=== PATIENT | female | born 1985 | race Caucasian/White ===

== ENCOUNTER 2023-09-02 16:39 | Inpatient (IN) | payer OTHER, SELFPAY ==
[2023-09-02 16:54] VITALS: BP 134/80; PULSE 105; RESP 18; TEMP 36.7; O2SAT 98; BMI 20.7
--- NOTE | 2023-09-02 16:56 | ED.GENADULT ---
HPI - General Adult General Chief complaint: Neuro Symptoms/Deficit Stated complaint: Unable to feel arms/hands are locked Time Seen by Provider: 09/02/23 17:29 Source: patient Mode of arrival: ambulatory History of Present Illness HPI narrative: 37-year-old female who denies any past medical history but endorses that she consumes 5-6 alcoholic drinks daily and states that she was on her way back home ([place], [place]) and began experiencing significant tremors that she was unable to control and was concerned because she has known magnesium and potassium derangements previously and denies any history of having experienced seizures. Related Data Home Medications Medication Instructions Recorded Confirmed buspirone 5 mg tablet 5 mg PO BID 09/03/23 09/03/23 citalopram 20 mg tablet 20 mg PO DAILY 09/03/23 09/03/23 potassium chloride 20 mEq 40 meq PO BID 09/03/23 09/03/23 tablet,extended release(part/cryst) (Klor-Con M) Previous Rx's Medication Instructions Recorded magnesium oxide 400 mg PO BID #10 caps 09/03/23 Allergies Allergy/AdvReac Type Severity Reaction Status Date / Time No Known Allergies Allergy Verified 09/02/23 16:53 Review of Systems Review of Systems: Pertinent positives and negatives as stated in HPI [facility] Past Medical History Source: nursing notes reviewed Social History Social History Alcohol intake: current Alcohol intake frequency: 3 or more drinks per day Alcohol type: other Patient Tobacco Use Status: Current everyday Tobacco user service: No Physical Exam ED Vital Signs: Vital Signs - 24 hr 09/02/23 16:54 09/02/23 18:37 09/02/23 18:38 Temperature 98.1 F 98.3 F Pulse Rate 105 H 106 H Pulse Rate [Left Apical] 101 H Respiratory Rate 18 14 Blood Pressure 134/80 121/75 Pulse Oximetry 98 96 Oxygen Delivery Method Room Air Room Air 09/02/23 19:06 Temperature Pulse Rate 114 H Pulse Rate [Left Apical] Respiratory Rate 18 Blood Pressure 114/78 Pulse Oximetry 100 Oxygen Delivery Method Room Air BMI result Body Mass Index 20.7 VITAL SIGNS: Reviewed. GENERAL: Well developed, well nourished, in no acute distress. HEAD: Normocephalic/atraumatic EYES: PERRLA, EOMI EARS: Ext canals without abnormality NOSE: Nares patent bilateral OROPHARYNX: no oral lesions noted, posterior pharynx clear NECK: Supple, no adenopathy LUNGS: Normal breath sounds. No adventitious sounds or accessory muscle use. SpO2<98> CARDIOVASCULAR: Regular rate and rhythm without noted murmurs ABDOMEN: Soft, non-tender, non-distended with bowel sounds. MUSCULOSKELETAL: No tenderness, deformities, or effusions noted on gross inspection. EXTREMITIES: No cyanosis, clubbing or edema. SKIN: Inspection of the skin reveals no rashes, NEUROLOGIC: Alert and oriented x 4. Strength and sensation to light touch were grossly intact x 4, paresthesias+, significant tremors+. Course Course Course Narrative: RME: 37 yold female presents to the ED for tremors with pmh of alcohol abuse and hypokalemia, hypomagnesmeia, and alcohol abuse. patient's last drink was last night. labs ordered. Charge nurse informed for patient to be brought to the ED immedialely for possible withdrawals. Medications Administered Generic Name Dose Route Start Last Admin Trade Name Gilberto PRN Reason Stop Dose Admin Buspirone HCl 5 mg 09/03/23 09:00 09/03/23 08:46 Buspirone Hcl 5 Mg Tablet PO 5 mg BID CHAPITO Administration Enoxaparin Sodium 40 mg 09/02/23 20:00 09/02/23 20:58 Enoxaparin Sodium 40 Mg/0.4 Ml Syringe SUBCUT 40 mg Q24H CHAPITO Administration Escitalopram Oxalate 10 mg 09/03/23 09:00 09/03/23 08:46 Escitalopram Oxalate 10 Mg Tablet PO 10 mg DAILY CHAPITO Administration Famotidine 20 mg 09/02/23 21:00 09/03/23 08:04 Famotidine 20 Mg Tablet PO 20 mg BID CHAPITO Administration Folic Acid 1 mg 09/02/23 20:25 09/03/23 07:58 Folic Acid 1 Mg Tablet PO 09/05/23 20:24 1 mg DAILY CHAPITO Administration Lorazepam 1 mg 09/03/23 00:00 09/03/23 07:59 Lorazepam 1 Mg Tablet PO 09/06/23 23:59 1 mg Q4H CHAPITO Administration Taper Magnesium Oxide 400 mg 09/03/23 08:30 09/03/23 08:46 Magnesium Oxide 400 Mg Tablet PO 400 mg BIDPC CHAPITO Administration Multivitamins/Vitamin C 1 tab 09/02/23 20:25 09/03/23 07:58 Multivitamin Tablet PO 09/05/23 20:24 1 tab DAILY CHAPITO Administration Potassium Chloride 40 meq 09/03/23 09:00 09/03/23 08:46 Potassium Chloride Er 20 Meq Tab.Er.Prt PO 40 meq BID CHAPITO Administration Sodium Chloride 3 ml 09/03/23 00:00 09/03/23 08:00 0.9 % Sodium Chloride Flush 3 Ml Syringe IVFLUSH 3 ml QSHIFT CHAPITO Administration Thiamine HCl 100 mg 09/02/23 20:25 09/03/23 07:58 Thiamine Hcl 100 Mg Tablet PO 09/05/23 20:24 100 mg DAILY CHAPITO Administration Discontinued Medications Generic Name Dose Route Start Last Admin Trade Name Freq PRN Reason Stop Dose Admin Sodium Chloride 1,000 mls @ 999 mls/hr 09/02/23 18:00 09/02/23 19:46 Ns IV 09/02/23 19:00 Infused .Q1H1M CHAPITO Infusion Magnesium Sulfate 2 gm in 50 mls @ 150 mls/hr 09/02/23 18:07 09/02/23 19:45 Magnesium Sulfate/H2o IV 09/02/23 18:26 Infused ONCE ONE Infusion Potassium Chloride 10 meq in 100 mls @ 100 mls/hr 09/02/23 18:45 09/03/23 00:18 Potassium Chloride/H20 IV 09/02/23 22:44 Infused Q1H CHAPITO Infusion Lorazepam 2 mg 09/02/23 19:14 09/02/23 19:44 Lorazepam 1 Mg Tablet PO 09/02/23 19:15 2 mg ONCE ONE Administration Ondansetron HCl 4 mg 09/02/23 17:47 09/02/23 17:52 Ondansetron Hcl 4 Mg/2 Ml Vial IVPUSH 09/02/23 17:48 4 mg ONCE ONE Administration Phenobarbital Sodium 262 mg 09/02/23 18:45 09/02/23 19:40 Phenobarbital Sodium 130 Mg/Ml Im Once IM 09/02/23 18:46 Not Given ONCE ONE Potassium Chloride 40 meq 09/02/23 20:05 09/02/23 21:00 Potassium Chloride Packet 20 Meq Packet PO 09/02/23 20:06 40 meq ONCE ONE Administration Medical Decision Making Medical Decision Making MDM Narrative: 37-year-old female with history and clinical presentation most consistent with alcohol withdrawal, benign paresthesias are possibility but felt to be less likely and will rule out infection/anemia/electrolyte derangements. I reviewed all investigations and hematologic indices are negative for leukocytosis but there is a noted left shift, there is no anemia there is a macrocytosis consistent with suspected B12 deficiency due to chronic alcohol use, there is no thrombocytopenia. Chemistry indices are significant for both hypomagnesemia and hypokalemia, there is no QI but patient is not tolerating oral intake at this time and will receive Zofran/IV fluids and be placed on a phenobarb protocol. Elevated transaminases are felt to be secondary to underlying alcohol abuse. [facility]13 [id number]: I discussed with inpatient hospitalist who accepts admission. Differential Diagnosis Differential Diagnoses: The differential diagnosis associated with the presentation includes Please see the discussion above Admission/Observation Consideration of admission/observation: Escalation of care including admission/observation considered Please see the discussion above Consult Healthcare Provider Management of the patient was discussed with: Hospitalist Please see the discussion above Lab Data [facility] Lab Attestation statement: I reviewed the patient's lab results. Please see the discussion above 09/03/23 05:21 09/03/23 05:21 Labs: Lab Results 09/02/23 09/02/23 Range/Units 17:05 17:23 WBC 9.8 (4.8-10.8) X10*3/uL RBC 3.98 L (4.20-5.50) X10*6/uL Hgb 14.0 (12.0-16.0) g/dl Hct 41.0 (37.0-47.0) % MCV 103.0 H (80.0-98.0) fL MCH 35.2 H (27.0-33.0) pg MCHC 34.1 (31.0-35.0) g/dl RDW 12.4 (11.0-16.0) % Plt Count 217 (160-400) X10*3/uL MPV 9.8 (9.4-12.3) fL Immature Gran % (Auto) 0.4 (0.0-0.4) % Neut % (Auto) 83.9 H (45-73) % Lymph % (Auto) 8.8 L (20-40) % [place] % (Auto) 5.6 (2-11) % Eos % (Auto) 0.2 (0-4) % Baso % (Auto) 1.1 (0-2) % Lymph # (Auto) 0.9 L (1.2-4.9) X10*3/uL [place] # (Auto) 0.6 (0.1-1.2) X10*3/uL Eos # (Auto) 0.0 (0.0-0.4) X10*3/uL Baso # (Auto) 0.1 (0.0-0.2) X10*3/uL Abs Immat Gran (auto) 0.04 H (0.00-0.03) X10*3/uL Absolute Neuts (auto) 8.2 (2.0-8.3) x10*3/uL Absolute Nucleated RBC 0.000 (0.0-0.012) X10*3/uL Nucleated RBC % (auto) 0.0 (0.0-0.2) /100WBC Sodium 145 (135-145) mmol/L Potassium 2.6 L (3.3-5.1) mmol/L Chloride 102 (96-108) mmol/L Carbon Dioxide 22 (22-29) mmol/L Anion Gap 24 H (12-20) BUN 6 L (9-16) mg/dL Creatinine 0.71 (0.5-1.4) mg/dL Estim Creat Clear Calc 94.4 Estimated GFR > 60 Random Glucose 100 (60-115) mg/dL Calcium 8.8 (8.4-10.2) mg/dL Magnesium 1.3 L* (1.6-2.6) mg/dL Total Bilirubin 0.7 (0.0-1.0) mg/dL AST 59 H (5-31) U/L ALT 34 H (0-31) U/L Alkaline Phosphatase 78 (39-117) U/L Total Protein 7.1 (6.5-8.0) g/dL Albumin 4.2 (3.5-5.0) g/dL Lipase 14 (8-78) U/L Beta HCG, Quant < 2 mIU/mL Urine Color Yellow Urine Appearance Clear Urine pH >= 9.0 (5.0-9.0) Ur Specific [place] 1.025 (1.005-1.025) Urine Protein 30 (1+) H (Neg-Trace) mg/dL Urine Glucose (UA) Negative (Negative) mg/dL Urine Ketones 40 (Negative) mg/dL Urine Blood Negative (Negative) Urine Nitrite Negative (Negative) Ur Leukocyte Esterase Negative (Negative) Urine RBC 3-5 H (0-2) /HPF Urine WBC 0-5 (0-5) /HPF Ur Squamous Epith Cells 3-5 (0-2) /HPF Urine Bacteria None Seen (None Seen) Hyaline Casts 0-2 (0-2) /LPF Urine Test NEGATIVE (NEGATIVE) Ethyl Alcohol 26 mg/dL Independent Interpretation I performed an independent interpretation of an: EKG Interpretation: Sinus tachycardia, HR-112, no STEMI, NC/QRS is within normal limits, QTC is noted to be prolonged and patient receiving magnesium as well as potassium. Chronic Conditions Patient?s care impacted by: Other Alcohol abuse Social Determinants Patient?s care significantly limited by Social Determinants of Health including: Alcoholism and drug addiction in family Critical Care Time Critical Care Time Critical Care Time: Yes Total Critical Care Time: 30 Attestation: I personally attest to this time spent taking care of the patient. Discharge Plan Discharge Clinical Impression: Alcohol withdrawal, Nausea & vomiting, Dehydration, Hypokalemia, Hypomagnesemia Patient Disposition: Home, Self-Care Interventions: ED Discharge Assessment Last Done: 09/03/23 10:27 Discharge Date/Time: 09/03/23 10:30
[2023-09-02 17:14] LABS: Appearance Urine Clear; Color Urine Yellow; Glucose Urine UA Negative (Negative); Leukocyte Esterase Urine Negative (Negative); Nitrite Urine Negative (Negative); PH >= 9.0 (5.0-9.0); Specific Gravity - Urine 1.025 (1.005-1.025); UMIC TRIGGER UACC YES; Urine Blood Negative (Negative); Urine Ketones 40 mg/dL (Negative); Urine Protein 30 (1+) mg/dL (Neg-Trace)
[2023-09-02 17:26] LABS: MANUAL DIFF FLAG NO
[2023-09-02 17:27] LABS: Basophils Absolute Auto 0.1 X10*3/uL (0.0-0.2); Basophils Percent Auto 1.1 % (0-2); Eosinophils Percent Auto 0.2 % (0-4); Imm Gran Abs Auto 0.04 X10*3/uL (0.00-0.03); Imm Gran Pct Auto 0.4 % (0.0-0.4); Lymphocytes Absolute Auto 0.9 X10*3/uL (1.2-4.9); Lymphocytes Percent Auto 8.8 % (20-40); Mean Corpuscular HGB Conc 34.1 g/dl (31.0-35.0); Mean Corpuscular Hemoglobin 35.2 pg (27.0-33.0); Mean Platelet Volume 9.8 fL (9.4-12.3); Monocytes Absolute Auto 0.6 X10*3/uL (0.1-1.2); Monocytes Percent Auto 5.6 % (2-11); Neutrophils Absolute Auto 8.2 x10*3/uL (2.0-8.3); Neutrophils Percent Auto 83.9 % (45-73); Platelet Count 217 X10*3/uL (160-400); Red Blood Count 3.98 X10*6/uL (4.20-5.50); Red Cell Distribution Width 12.4 % (11.0-16.0); White Blood Count 9.8 X10*3/uL (4.8-10.8)
[2023-09-02 17:32] LABS: Bacteria Urine None Seen (None Seen); Hyaline Casts Urine 0-2 /LPF (0-2); UPreg QC Valid YES; Urine Pregnancy NEGATIVE (NEGATIVE); WBC Urine 0-5 /HPF (0-5)
--- NOTE | 2023-09-02 17:32 | PC.NURSE ---
Addendum entered by Cassie Cullen RN 09/02/23 18:41: it was noted after this note was typed that the patient was drinking red gatorade prior to vomiting. Original Note: pt vomited approx 600 ml red tinged liquid.
[2023-09-02] MEDS: 0.9 % Sodium Chloride 1,000 ML 999 ML IV (17:52)
[2023-09-02] MEDS: ondansetron HCL 4 MG/2 ML VIAL IVPUSH (17:52)
[2023-09-02 18:05] LABS: Alanine Aminotransferase 34 U/L (0-31); Albumin Level 4.2 g/dL (3.5-5.0); Alkaline Phosphatase 78 U/L (39-117); Anion Gap 24 (12-20); Aspartate Amino Transferase 59 U/L (5-31); Bilirubin Total 0.7 mg/dL (0.0-1.0); Blood Urea Nitrogen 6 mg/dL (9-16); Calcium 8.8 mg/dL (8.4-10.2); Carbon Dioxide 22 mmol/L (22-29); Chloride 102 mmol/L (96-108); Creatinine Clr Calc Pharmacy 94.4; Estimated Glomerular Filt Rate > 60; Ethanol 26 mg/dL; Glucose Random 100 mg/dL (60-115); HCG Quantitative < 2 mIU/mL; Magnesium 1.3 mg/dL (1.6-2.6); Potassium 2.6 mmol/L (3.3-5.1); Sodium 145 mmol/L (135-145); Total Protein 7.1 g/dL (6.5-8.0)
[2023-09-02 18:10] LABS: Lipase 14 U/L (8-78)
[2023-09-02] MEDS: Magnesium Sulfate/H2O 2 GM/50 ML PIGGYBACK IV (18:35)
[2023-09-02 18:37] VITALS: BP 121/75; PULSE 106; RESP 14; TEMP 36.8; O2SAT 96
[2023-09-02 18:38] VITALS: PULSE 101
--- NOTE | 2023-09-02 18:40 | ECG_ITS ---
Test Reason : vomiting/ tachycardia Blood Pressure : / mmHG Vent. Rate : 112 BPM Atrial Rate : 112 BPM P-R Int : 156 ms QRS Dur : 084 ms QT Int : 378 ms P-R-T Axes : 057 014 014 degrees QTc Int : 515 ms Sinus tachycardia RSR' or QR pattern in V1 suggests right ventricular conduction delay Nonspecific ST abnormality Abnormal ECG No previous ECGs available Referred By: Lisa Heard Electronically Signed By:BRODY KEARNS MD
--- NOTE | 2023-09-02 18:41 | PC.NURSE ---
patient a&ox3, control cabinet assembler applied pt st on monitor, iv inserted, labs drawn, pt ciwa 8, pt medicated per order. IVF and mag running per order, will obtain ekg, call bhatia within reach, will continue to monitor.
[2023-09-02 19:06] VITALS: BP 114/78; PULSE 114; RESP 18; O2SAT 100
[2023-09-02] MEDS: Potassium Chloride/H20 10 MEQ/100 ML PIGGYBACK 100 MEQ IV ×4 (19:22→23:18)
--- NOTE | 2023-09-02 19:22 | P.HPHOSP_ITS ---
History of Present Illness Date of Service: 09/02/23 Attending physician on admission: James Purvis Chief Complaint: Numbness and tingling in arms, clenched hands Pt is a 37-year-old female with a PMH significant for?chronic hypokalemia, alcohol dependence, and anxiety who presents to the ED with?sudden onset numbness and tingling in arms and clenched hands. Patient lives in [place] and normally goes to [facility] in [place]. Was visiting the area with her boyfriend for a and driving on the way back suddenly experienced numbness and tingling in her arms bilaterally and had her hands lock up to where she could not move them. Patient denies experiencing anything like this before, but notes she has a long history of hypokalemia for which she takes daily supplements. No also reports having ?the shakes? in her upper extremities since she was young, though notes these have become worse in the past few years. Patient also admits that she has felt under a lot of stress lately due to financial matters and has been feeling ?wicked anxious?. Reports drinking 4-5 hard seltzers daily with last drink last night. Denies history of alcohol withdrawal and says she usually does not drink until later in the evening after work. Smokes 1-2 packs of cigarettes weekly. Had some nausea and vomiting while in the ED. Denies diaphoresis, no auditory or visual hallucinations. No fever, chills, abdominal pain. Patient notes she has recently started taking buspirone for anxiety. Patient also denies any significant PMH, however knows she was hospitalized for over 3 weeks at [facility] in [place] for ?organ failure?. Patient states that many of her organs were failing including her kidneys, reports her hospital providers were unable to come up with an etiology or a formal diagnosis. In the ED pt was afebrile but tachycardic up to 114, normotensive and satting at 98% on RA. Labs were significant for MCV 103.0, potassium 2.6, magnesium 1.3, AST 59, ALT 34, and ethyl alcohol 26. No leukocytosis. H&H 14.0/41.0. Renal function WNL. Lipase WNL. UA negative for UTI. EKG demonstrated sinus tachycardia of 112 without evidence of significant ST elevations or depressions. Pt was treated with IVF, ondansetron, Mag sulfate, and potassium chloride. Pt will be admitted to the hospital for hypokalemia, hypomagnesemia, and alcohol withdrawal. Review of Systems 2 Review of Systems: Numbness and tingling in hands and arms Clinching of hands bilaterally Increased anxiety Chronic upper extremity tremors Nausea, vomiting Denies fever, chills, abdominal pain No chest pain/pressure, palpitations Denies shortness of breath PMFSH Social History Alcohol intake: current Alcohol intake frequency: 3 or more drinks per day Alcohol type: other Smoked in Last 30 Days: Yes Use of substances other than those prescribed or required for medical reasons: No Advance Directives: No Advance Directives Information Provided: No Patient : No Meds Allergies Allergy/AdvReac Type Severity Reaction Status Date / Time No Known Allergies Allergy Verified 09/02/23 16:53 Active Medications: Current Medications Acetaminophen (Acetaminophen 325 Mg Tablet) 650 mg PO Q6H PRN PRN Reason: Pain, Mild (Pain Scale 1-3) Benzonatate (Benzonatate 100 Mg Capsule) 100 mg PO TID PRN PRN Reason: Cough Docusate Sodium (Docusate Sodium 100 Mg Capsule) 100 mg PO DAILY PRN PRN Reason: Constipation Enoxaparin Sodium (Enoxaparin Sodium 40 Mg/0.4 Ml Syringe) 40 mg SUBCUT Q24H CHAPITO Potassium Chloride (Potassium Chloride/H20) 10 meq in 100 mls @ 100 mls/hr IV Q1H CHAPITO Stop: 09/02/23 22:44 Lorazepam (Lorazepam 1 Mg Tablet) 1 mg PO Q4H PRN PRN Reason: Breakthrough alcohol withdrawa Stop: 09/06/23 19:13 Lorazepam (Lorazepam 1 Mg Tablet) 1 mg PO Q4H CHPAITO; Taper Stop: 09/06/23 23:59 Melatonin (Melatonin 3 Mg Tablet) 6 mg PO BEDTIME PRN PRN Reason: Insomnia Ondansetron HCl (Ondansetron Hcl 4 Mg/2 Ml Vial) 4 mg IVPUSH Q8H PRN PRN Reason: Nausea and Vomiting Sodium Chloride (0.9 % Sodium Chloride Flush 3 Ml Syringe) 3 ml IVFLUSH QSHIFT CHAPITO Physical Exam 2 Vital Signs and Narrative: Vital Signs: Last Vital Signs Temp 98.3 F 09/02/23 18:37 Pulse 114 H 09/02/23 19:06 Resp 18 09/02/23 19:06 BP 114/78 09/02/23 19:06 Pulse Ox 100 09/02/23 19:06 O2 Del Method Room Air 09/02/23 19:06 BMI result Body Mass Index 20.7 Constitutional: Alert, restless, anxious, in no acute distress. Mental Status: Oriented to person, place and time. Eyes: Pupils are equal, round, and reactive to light. Ear, Nose, and Throat: Oropharynx clear, mucous membranes moist. Ears and nose without deformities. Trachea midline. No tongue fasciculations Respiratory: Clear to auscultation bilaterally. No wheezing, rales, or rhonchi. Cardiovascular: S1, S2, fast. No murmurs, rubs, or gallops. Gastrointestinal: Abdomen soft, non-tender, non-distended. Normal bowel sounds. Neurologic: Cranial nerves II-XII are grossly intact bilaterally. No focal neurological deficits. Moves all extremities spontaneously. Moderate upper extremity tremors noted. Skin: Warm, dry. Musculoskeletal: No cyanosis or clubbing. Extremities: No edema. Psychiatric: Normal mood and affect. Results Labs 09/02/23 17:23 09/02/23 17:23 Labs: Laboratory Results - last 24 hr 09/02/23 09/02/23 17:05 17:23 MCV 103.0 H MCH 35.2 H MCHC 34.1 RDW 12.4 Plt Count 217 MPV 9.8 Immature Gran % (Auto) 0.4 Neut % (Auto) 83.9 H Lymph % (Auto) 8.8 L [place] % (Auto) 5.6 Eos % (Auto) 0.2 Baso % (Auto) 1.1 Lymph # (Auto) 0.9 L [place] # (Auto) 0.6 Eos # (Auto) 0.0 Baso # (Auto) 0.1 Abs Immat Gran (auto) 0.04 H Absolute Neuts (auto) 8.2 Absolute Nucleated RBC 0.000 Nucleated RBC % (auto) 0.0 Anion Gap 24 H Estim Creat Clear Calc 94.4 Estimated GFR > 60 Random Glucose 100 Calcium 8.8 Magnesium 1.3 L* Total Bilirubin 0.7 AST 59 H ALT 34 H Alkaline Phosphatase 78 Total Protein 7.1 Albumin 4.2 Lipase 14 Beta HCG, Quant < 2 Urine Color Yellow Urine Appearance Clear Urine pH >= 9.0 Ur Specific [place] 1.025 Urine Protein 30 (1+) H Urine Glucose (UA) Negative Urine Ketones 40 Urine Blood Negative Urine Nitrite Negative Ur Leukocyte Esterase Negative Urine RBC 3-5 H Urine WBC 0-5 Ur Squamous Epith Cells 3-5 Urine Bacteria None Seen Hyaline Casts 0-2 Urine Test NEGATIVE Ethyl Alcohol 26 Assessment and Plan (1) Hypomagnesemia: Status: Acute (2) Hypokalemia: Status: Acute (3) Alcohol withdrawal: Status: Acute Plan Pt is a 37-year-old female with a PMH significant for?chronic hypokalemia, alcohol dependence, and anxiety who presents to the ED with?sudden onset numbness and tingling in arms and clenched hands. Pt will be admitted to the hospital for hypokalemia, hypomagnesemia, and alcohol withdrawal. Alcohol withdrawal Moderate upper extremity tremors Will treat with Ativan protocol Daily multivitamin, folic acid, Thiamine Famotidine 20 mg p.o. Follow lyabril, , BMP CIWA scale Addiction medicine consult Monitor on telemetry Hypokalemia Potassium 2.6 at time of presentation Patient received IV potassium in ED Will give additional potassium 40 mEq p.o. Follow BMP Hypomagnesemia Magnesium 1.3 at time of presentation Patient received back 2g IV in ED Follow mag Upper extremity numbness and tingling with clenched hands Likely d/t electrolyte imbalances in the setting of alcohol use disorder Treat as above Anxiety Patient on Ativan protocol for alcohol withdrawal Full Code Attending:?Dr. Purvis DVT Prophylaxis: Lovenox Pt will require a hospitalization of at least two nights for treatment of?hypokalemia, hypomagnesmia, and alcohol withdrawal. Patient require Ativan withdrawal protocol and close monitoring. Quality Stroke Does the patient have a stroke diagnosis?: No VTE Prior VTE?: No VTE Risk Level:: Medical - moderate - high VTE Device Contraindication: Treatment Not Indicated VTE Drug Contraindication: N/A - Med Ordered
--- NOTE | 2023-09-02 19:36 | PC.NURSE ---
messaged provider about BP 105/68 to see if I can still administer phenobarb.
[2023-09-02 19:37] VITALS: BP 105/68; PULSE 100; RESP 12; O2SAT 98
--- NOTE | 2023-09-02 19:39 | PC.NURSE ---
provider would like to hold on phenobarb injection at this time
[2023-09-02] MEDS: LORazepam 1 MG TABLET 2 MG PO (19:44)
[2023-09-02] MEDS: Thiamine HCL 100 MG TABLET PO (20:58)
[2023-09-02] MEDS: Multivitamin TABLET 1 TAB PO (20:58)
[2023-09-02] MEDS: Enoxaparin Sodium 40 MG/0.4 ML SYRINGE SUBCUT (20:58)
[2023-09-02] MEDS: Folic Acid 1 MG TABLET PO (20:58)
[2023-09-02] MEDS: Famotidine 20 MG TABLET PO (20:58)
[2023-09-02] MEDS: Potassium Chloride Packet 20 MEQ PACKET 40 MEQ PO (21:00)
[2023-09-02 22:00] VITALS: BP 116/77; PULSE 106; RESP 18; TEMP 37.1
[2023-09-03] MEDS: LORazepam 1 MG TABLET PO ×2 (00:32→07:59)
[2023-09-03] MEDS: 0.9 % Sodium Chloride Flush 3 ML SYRINGE IVFLUSH ×2 (00:32→08:00)
[2023-09-03 03:13] VITALS: BP 103/71; PULSE 89; RESP 16; TEMP 36.8; O2SAT 98
--- NOTE | 2023-09-03 04:34 | PC.NURSE ---
pt asleep in bed; resps are even and unlabored; no apparent distress. bed is in lowest and locked position. will continue to monitor.
[2023-09-03 05:34] LABS: Hematocrit 36.9 % (37.0-47.0); Hemoglobin 12.3 g/dl (12.0-16.0); Mean Corpuscular HGB Conc 33.3 g/dl (31.0-35.0); Mean Corpuscular Hemoglobin 35.1 pg (27.0-33.0); Mean Corpuscular Volume 105.4 fL (80.0-98.0); Platelet Count 166 X10*3/uL (160-400); Red Cell Distribution Width 12.5 % (11.0-16.0); White Blood Count 7.2 X10*3/uL (4.8-10.8)
[2023-09-03 05:42] LABS: Anion Gap 11 (12-20); Blood Urea Nitrogen 3 mg/dL (9-16); Carbon Dioxide 23 mmol/L (22-29); Chloride 107 mmol/L (96-108); Creatinine Clr Calc Pharmacy 111.7; Estimated Glomerular Filt Rate > 60; Glucose Random 78 mg/dL (60-115); Potassium 3.3 mmol/L (3.3-5.1); Sodium 138 mmol/L (135-145)
--- NOTE | 2023-09-03 06:27 | PHA.MEDREC ---
Pharmacy Consult ? Medication Reconciliation Pharmacy has completed the medication reconciliation.Pharmacy has reviewed med rec done by nursing.
[2023-09-03 07:55] VITALS: BP 98/63; PULSE 97; RESP 16; TEMP 37; O2SAT 98
[2023-09-03] MEDS: Multivitamin TABLET 1 TAB PO (07:58)
[2023-09-03] MEDS: Thiamine HCL 100 MG TABLET PO (07:58)
[2023-09-03] MEDS: Folic Acid 1 MG TABLET PO (07:58)
[2023-09-03] MEDS: Famotidine 20 MG TABLET PO (08:04)
[2023-09-03] MEDS: Potassium Chloride ER 20 MEQ TAB.ER.PRT 40 MEQ PO (08:46)
[2023-09-03] MEDS: busPIRone HCl 5 MG TABLET PO (08:46)
[2023-09-03] MEDS: Escitalopram Oxalate 10 MG TABLET PO (08:46)
[2023-09-03] MEDS: Magnesium Oxide 400 MG TABLET PO (08:46)
--- NOTE | 2023-09-03 09:14 | MHC.CM.PN ---
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
--- NOTE | 2023-09-03 09:47 | P.DS_ITS ---
DS: Providers Provider Date of Service: 09/03/23 Date of admission: 09/02/23 19:16 Date of discharge: 09/03/23 Primary care physician: Unknown Physician Consults: 09/02/23 20:36 Addiction Medicine Routine Consulting Provider: Addiction Covering Reason for consultation: Pt drinking more d/t stress, ?alcohol withdrawal Attending physician on discharge: James Purvis Discharging clinician: James Purvis DS: Diagnosis Discharge Diagnosis (1) Hypomagnesemia: Status: Acute (2) Hypokalemia: Status: Acute (3) Alcohol withdrawal: Status: Acute DS: Summary Hospital Course Hospital Course: 37-year-old female with a PMH significant for?chronic hypokalemia, alcohol dependence, and anxiety who presents to the ED with?sudden onset numbness and tingling in arms and clenched hands. Patient lives in [place] and normally goes to [facility] in [place]. Was visiting the area with her boyfriend for a and driving on the way back suddenly experienced numbness and tingling in her arms bilaterally and had her hands lock up to where she could not move them. Patient denies experiencing anything like this before, but notes she has a long history of hypokalemia for which she takes daily supplements. No also reports having ?the shakes? in her upper extremities since she was young, though notes these have become worse in the past few years. Patient also admits that she has felt under a lot of stress lately due to financial matters and has been feeling ?wicked anxious?. Reports drinking 4-5 hard seltzers daily with last drink last night. Denies history of alcohol withdrawal and says she usually does not drink until later in the evening after work. Smokes 1-2 packs of cigarettes weekly. Had some nausea and vomiting while in the ED. Denies diaphoresis, no auditory or visual hallucinations. No fever, chills, abdominal pain. Patient notes she has recently started taking buspirone for anxiety. Patient also denies any significant PMH, however knows she was hospitalized for over 3 weeks at [facility] for ?organ failure?. Patient states that many of her organs were failing including her kidneys, reports her hospital providers were unable to come up with an etiology or a formal diagnosis. In the ED pt was afebrile but tachycardic up to 114, normotensive and satting at 98% on RA. Labs were significant for MCV 103.0, potassium 2.6, magnesium 1.3, AST 59, ALT 34, and ethyl alcohol 26. No leukocytosis. H&H 14.0/41.0. Renal function WNL. Lipase WNL. UA negative for UTI. EKG demonstrated sinus tachycardia of 112 without evidence of significant ST elevations or depressions. Pt was treated with IVF, ondansetron, Mag sulfate, and potassium chloride. Pt will be admitted to the hospital for hypokalemia, hypomagnesemia, and alcohol withdrawal. Hospital course: patient came to hospital with anxiety symptoms and numbness -found to elevctrolytic abnormalities (low k,magnesium) ,also possible alcohol withdrawal -given ativan :seems electrolytes abnormalities and her symptoms improved , she will continue her potassium and added magnesium replacement limted supply . Patient is asymptomatic(patient says that she has similar symptoms in the past with low electrolytes). mild elevated Liver function tests-possible related to alcohol use.also she follow up with outpatient as per patient. patient was strongly advised to abstain from alcohol. moniter bmp,Liver function tests and magnesium levels with pcp. also continue her anxiety meds.further management outpatient. Plan: Continue her home anxiety medications Continue home potassium, added magnesium was limited supply. LFTs possibly elevated secondary to alcohol use. Monitor LFTs outpatient. Monitor BMP, magnesium, LFT outpatient Above management discussed with patient detail and she understand and agreement with the above plan, time spent 50 minute. Time Attestation Discharge coordination time: Greater than 30 minutes Quality: Safe Use of Opioids Does Pt have an Active Cancer Diagnosis on the Problem List?: No Quality: Stroke Does the patient have a stroke diagnosis?: No Physical Exam Vital Signs: Vital Signs: Last Vital Signs Temp 98.6 F 09/03/23 07:55 Pulse 97 09/03/23 07:55 Resp 16 09/03/23 07:55 BP 98/63 09/03/23 07:55 Pulse Ox 98 09/03/23 07:55 O2 Del Method Room Air 09/03/23 07:55 BMI result Body Mass Index 20.7 Appearance: Alert.? Oriented X3.? calm cvs: rrr, [id number] , no murmur res: clear to auscultation ,no rhonchii or wheezing abd: no rebound or guarding ,nt, bs present. ext pulses present , no cyanosis . neuro: axo3 , nonfocal. no numbness or weakness DS: Data Data Completed and Pending Labs on day of discharge: Laboratory Results - last 24 hr 09/02/23 09/02/23 09/03/23 17:05 17:23 05:21 WBC 9.8 7.2 RBC 3.98 L 3.50 L Hgb 14.0 12.3 Hct 41.0 36.9 L MCV 103.0 H 105.4 H MCH 35.2 H 35.1 H MCHC 34.1 33.3 RDW 12.4 12.5 Plt Count 217 166 MPV 9.8 10.0 Immature Gran % (Auto) 0.4 Neut % (Auto) 83.9 H Lymph % (Auto) 8.8 L [place] % (Auto) 5.6 Eos % (Auto) 0.2 Baso % (Auto) 1.1 Lymph # (Auto) 0.9 L [place] # (Auto) 0.6 Eos # (Auto) 0.0 Baso # (Auto) 0.1 Abs Immat Gran (auto) 0.04 H Absolute Neuts (auto) 8.2 Absolute Nucleated RBC 0.000 0.000 Nucleated RBC % (auto) 0.0 0.0 Sodium 145 138 Potassium 2.6 L 3.3 D Chloride 102 107 Carbon Dioxide 22 23 Anion Gap 24 H 11 L BUN 6 L 3 L Creatinine 0.71 0.60 Estim Creat Clear Calc 94.4 111.7 Estimated GFR > 60 > 60 Random Glucose 100 78 Calcium 8.8 8.0 L D Magnesium 1.3 L* 2.0 Total Bilirubin 0.7 AST 59 H ALT 34 H Alkaline Phosphatase 78 Total Protein 7.1 Albumin 4.2 Lipase 14 Beta HCG, Quant < 2 Urine Color Yellow Urine Appearance Clear Urine pH >= 9.0 Ur Specific [place] 1.025 Urine Protein 30 (1+) H Urine Glucose (UA) Negative Urine Ketones 40 Urine Blood Negative Urine Nitrite Negative Ur Leukocyte Esterase Negative Urine RBC 3-5 H Urine WBC 0-5 Ur Squamous Epith Cells 3-5 Urine Bacteria None Seen Hyaline Casts 0-2 Urine Test NEGATIVE Ethyl Alcohol 26 Discharge Plan Discharge Anticipated Discharge Date/Time: 09/03/23 09:29 Patient Disposition: Home, Self-Care Discharge Diagnosis: hypokalemia and hypomagnesemia ,alcohol withdrawal,anxiety Referrals: Physician,Michael J [Primary Care Provider] - 1 Week Discharge Medications: New magnesium oxide 400 mg magnesium capsule 400 mg PO BID Qty: 10 0RF Continued buspirone 5 mg tablet 5 mg PO BID citalopram 20 mg tablet 20 mg PO DAILY potassium chloride [Klor-Con M20] 20 mEq tablet,ER particles/crystals 40 meq PO BID Discharge Orders: Discharge Order (Routine); Ordered 09/03/23 Ordered By: James Purvis Diet: Advance to usual diet Activity on Discharge: As tolerated Stand Alone Forms: Patient Portal Discharge page Care Plan Goals: patient came to hospital with anxiety symptoms and numbness -found to elevctrolytic abnormalities (low k,magnesium) ,also possible alcohol withdrawal -atsrted on ativan : seems electrolytes abnormalities and her symptoms improved , she will continue her potassium and added magnesium replacement limted . mild elevated Liver function tests-possible related to alcohol use.also she follow up with outpatient as per patient. patient was strongly advised to abstain from alcohol. moniter bmp,Liver function tests and magnesium levels with pcp. also continue her anxiety meds.further management outpatient. Health Concerns: as above. Plan of Treatment: as above. Assessment: as above.
[2023-09-03 10:13] VITALS: BP 91/60; PULSE 101; RESP 18; TEMP 37.1
--- NOTE | 2023-09-03 10:28 | PC.NURSE ---
data recovery planner (keo) is at bedside. pt aware of plan of care.
--- NOTE | 2023-09-03 11:41 | MHC.RECOVRN ---
37 year old Slovak speaking female presented to [facility] ED via walk in on 09/02/2023 due to bilateral lower extremity tremors x 20 minutes.? Pt reporting h/o hypokalemia and that when her potassium is low this is what happens.? ?T/w along with Recovery Support Nurse Renee, met with pt to discuss alcohol use. Pt. was up and dressed and getting ready for discharge. Pt reports she is currently drinking 4-5 hard seltzers a day. She has been drinking for ?a long time? but just recently had increased due to stress. Pt. reports H/O alcohol use in her family.? ?She reported when she came in the ED on 09/02 that her last drink was ?last night?.? Pt is not from the area but was here for a .? ?Pt. denies any current W/D sx.? T/W noted BUE tremors but patient reported this is her baseline.? She did, however, report that the tremors got better when she received Ativan in the ED. Patient denied any h/o AUD treatment programs/self-help groups.? She did report that her PCP referred her for AUD treatment recently and she was going to be making an appt. Services available for AUD were introduced to pt.? She was educated regarding the dangers of alcohol use relating to the medical complications she is experiencing.? ?She was open to education and support surrounding AUD and accepted the literature given to her along with our contact information for follow up support.? No further intervention needed at this time.? Report to Mari Valerio NP.
== END 2023-09-03 11:15 | disposition home or self-care (01) | DRG 425 ==
LOC: HO.ED 19:05 → HO.EDOVER 19:27
PROVIDERS: Physician Assistant; Admitting Provider Student in an Organized Health Care Education/Training Program; Emergency Provider Student in an Organized Health Care Education/Training Program; PCP Family Medicine; Visit Provider Internal Medicine
DX: E83.42 Hypomagnesemia (principal); E86.0 Dehydration; F41.9 Anxiety disorder, unspecified; F10.239 Alcohol dependence with withdrawal, unspecified; E87.6 Hypokalemia; F17.210 Nicotine dependence, cigarettes, uncomplicated; Y90.1 Blood alcohol level of 20-39 mg/100 ml; Z71.6 Tobacco abuse counseling; Z79.899 Other long term (current) drug therapy
CPT/HCPCS: 36415; 80048; 80053; 80307; 81001; 81025; 83690; 83735; 84702; 85025; 85027; 93005; 99285; J1650; J2405; J3475; J3480

== ENCOUNTER → 2023-09-02 19:16 | Outpatient (BNV) | payer OTHER, SELFPAY | PROVIDERS: Admitting Provider Student in an Organized Health Care Education/Training Program; Emergency Provider Student in an Organized Health Care Education/Training Program; Visit Provider Student in an Organized Health Care Education/Training Program | DX: E83.42 Hypomagnesemia (principal); E87.6 Hypokalemia; F10.939 Alcohol use, unspecified with withdrawal, unspecified | CPT/HCPCS: 99223; 99239 ==